=== PATIENT | female | born 1990 | race Two or more races ===

== ENCOUNTER 2016-09-21 21:16 | Emergency (ER) | payer BC, OTHER ==
[~2016-09-21] VITALS: Ht 157.5 cm; Wt 70.3 kg
[2016-09-21 22:36] VITALS: BP 118/76
== END 2016-09-21 22:37 | disposition home or self-care (01) ==
LOC: ER 21:17
DX: M25.562 Pain in left knee (principal)
CPT/HCPCS: A4663